=== PATIENT | male | born 1995 | race African-American/Black ===

== ENCOUNTER 2017-07-03 02:21 | Emergency (ER) | payer BC ==
[~2017-07-03] VITALS: Ht 182.9 cm; Wt 74.4 kg
[2017-07-03 02:24] VITALS: BP 110/78
[2017-07-03] MEDS ORDERED: AUGMENTIN875 MG PO (04:08)
== END 2017-07-03 04:39 | disposition home or self-care (01) ==
LOC: EME 02:21
DX: J02.9 Acute pharyngitis, unspecified (principal); B34.9 Viral infection, unspecified; R11.2 Nausea with vomiting, unspecified; R51 Headache; R05 Cough
CPT/HCPCS: 71020; 87651 90; 99281; 99284